=== PATIENT | female | born 1980 | race Asian ===

== ENCOUNTER 2023-05-01 19:52 | Emergency (ER) | payer OTHER ==
[2023-05-01 19:59] VITALS: BP 127/81; PULSE 100; RESP 20; TEMP 97.8; BMI 34.9
== END 2023-05-01 22:54 | disposition home or self-care (01) ==
LOC: JER 19:52
DX: R07.89 Other chest pain (principal); V49.50XA Passenger injured in collision with unspecified motor vehicles in traffic accident, initial encounter; Y92.481 Parking lot as the place of occurrence of the external cause
CPT/HCPCS: 71046-TC-FY; 99283-25